=== PATIENT | male | born 1990 | race Caucasian/White ===

== ENCOUNTER 2021-12-05 20:32 | Emergency (ER) | payer OTHER ==
[2021-12-06 15:36] LABS: SARS-CoV-2 PCR by NAA Not Detected (NotDetected)
== END 2021-12-05 22:15 ==
LOC: ERS 20:32
DX: J45.901 Unspecified asthma with (acute) exacerbation (principal); Z20.822 Contact with and (suspected) exposure to COVID-19; Z87.891 Personal history of nicotine dependence
CPT/HCPCS: 71045; U0003; U0005